=== PATIENT | male | born 1940 | race Caucasian/White ===

== ENCOUNTER 2020-08-09 10:40 | Inpatient (IN) | payer OTHER ==
[~2020-08-09] VITALS: Ht 177.8 cm; Wt 71.8 kg
[~2020-08-09 10:40] MED LIST: ACET325 PO; ALBU3IS INH; ALUMAGSIMA PO; AMIO200 PO; ASPI325EC PO; ASPI81CH PO; ASPI81EC PO; ATOR40TA PO; ATOR80 PO; CLOP75 PO; DIGO.125 PO; DIGO.25 PO; DILT120 PO; DOCU100 PO; FLORASTOR PO; FURO40 PO; FURO80 PO; HYDACE5 PO; IODINE; LEVFLO500 PO; LEVSOD75 PO; LISI5 PO; METO100ER PO; METO25ER PO; METO50 PO; METO50ER PO; METR500 PO; MIRT15 PO; MULVITA PO; MULVITMIND PO; NITR100CA PO; O2; OMEP20ER PO; POTCHL10ER PO; POTCHL20ER PO; RANI150 PO; SENN187 PO; SPIR25 PO; TORSE20 PO; WARF5 PO; WARF6 PO; [UNRECOGNIZED DRUG - OTHER]
[2020-08-09 11:19] LABS: BASOPHILS ABSOLUTE AUTO 0.04 K/mm3 (0.00-0.23); BASOPHILS PERCENT AUTO 0 % (0-2); EOSINOPHILS ABSOLUTE AUTO 0.06 K/mm3 (0.00-0.68); EOSINOPHILS PERCENT AUTO 1 % (0-6); Hemoglobin 12.2 g/dL (13.5-17.5); IMMATURE GRAN ABSOLUTE AUTO 0.07 K/mm3 (0.00-0.10); IMMATURE GRAN PERCENT AUTO 1 % (0-1); LYMPHOCYTES PERCENT AUTO 16 % (21-46); MONOCYTES ABSOLUTE AUTO 1.12 K/mm3 (0.16-1.47); MONOCYTES PERCENT AUTO 11 % (4-13); Mean Corpuscular HGB 29.2 pg (26.0-34.0); Mean Corpuscular HGB Conc 32.1 g/dL (31.5-36.5); Mean Corpuscular Volume 91 fL (80-100); Mean Platelet Volume 9.9 fL (9.1-12.4); NEUTROPHILS ABSOLUTE AUTO 7.23 K/mm3 (1.96-9.15); NEUTROPHILS PERCENT AUTO 71 % (41-73); Platelet Count 242 K/mm3 (150-400); RDW Coefficient Variation 13.5 % (11.7-14.2); RDW Standard Deviation 45.2 fL (35.1-46.3); Red Blood Cell Count 4.18 M/mm3 (4.30-5.90); White Blood Cell Count 10.12 K/mm3 (4.00-11.30)
[2020-08-09 11:36] LABS: International Normalized Ratio 1.87; Prothrombin Time Results 19.3 Sec (9.7-11.5)
[2020-08-09] MEDS ORDERED: LOSA25 PO (11:36)
[2020-08-09] MEDS ORDERED: WARF5 PO (11:37)
[2020-08-09] MEDS ORDERED: PANT20 PO (11:37)
[2020-08-09 11:39] LABS: Source, Urine Catheter
[2020-08-09 11:40] LABS: Albumin, Blood 2.7 g/dL (3.4-5.0); Albumin/Globulin Ratio 0.5 (0.8-1.8); Bilirubin, Total 0.9 mg/dL (0.1-1.0); Creatinine, Blood 1.26 mg/dL (0.60-1.20); Free Thyroxine 1.55 ng/dL (0.70-1.60); Globulin, Blood 5.1 g/dL (2.2-4.0); Magnesium, Blood 2.3 mg/dL (1.6-2.4); Potassium, Blood 3.9 mmol/L (3.5-5.5); Thyroid Stimulating Hormone 0.41 uIU/mL (0.360-4.800); Total Protein, Blood 7.8 g/dL (6.4-8.2); Troponin I 0.093 ng/mL (0.000-0.040)
[2020-08-09 11:50] LABS: Appearance, Urine Clear (Clear); Bilirubin, Urine Neg (Neg); Blood, Urine 5+ (Neg); Color, Urine Yellow (P-Yellow); Glucose Qualitative, Urine 1+ (Neg); Ketones, Urine 1+ (Neg); Leukocyte Esterase, Urine Neg (Neg); Nitrite, Urine Neg (Neg); Protein, Urine 3+ (Neg); Urobilinogen, Urine NORM (Normal)
[2020-08-09 12:01] LABS: Red Blood Cells, Urine 25-50 /hpf (0-2)
[2020-08-09 12:02] LABS: Bacteria Rare /hpf; Granular Casts 0-2 /lpf (0); Squamous Epithelial Cells Not Seen /hpf (Few)
--- NOTE | 2020-08-09 17:43 | NUR ---
RECEIEVED REPORT FROM LLILIAM MARCUS RN, AT 1428. PATIENT ARRIVED TO ROOM 305 AT 1445 AND WAS TRANSFERED TO HOSPITAL BED WITH THE ASSIST OF THREE STAFF MEMBERS. PATIENT ALERT AND ORIENTED WHEN HE ORIGINALLY ADMITTED TO THE FLOOR HOWEVER HAS SINCE BEEN NOTED TO HAVE CONFUSION. PATIENT DOES NOT RECALL WHERE HE IS AT AND INSISTS ON LAYING DOWN IN BED EVEN THOUGH HE IS ALREADY LAYING DOWN. SCD'S PLACED TO BLE. ADMISSION ASSESSMENT COMPLETED. H&P COMPLETED MOSTLY BY USE OF MEDICAL RECORDS. PATIENT ARRIVED TO THE UNIT VERY UNKEMPT AND DIRTY. PATIENT GIVEN A BEDBATH IMMEDIATELY. ULCERS OF SOME SORT TO BILATERAL INNER ANKLES; PICTURES IN CHART. 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 TELE PLACED ON PATIENT AND WAS RUNNING NSR WITH A 1ST DEGREE BLOCK AND PAC's HOWEVER HAD A 3 MINUTE RUN OF SVT AT APPROX 1740 PER HEATER TENDER. PATIENT STATES HE WAS ASYMMTOMATIC HOWEVER HE WAS NOTED TO BEING CONFUSED AT THE SAME TIME SO UNSURE OF THE RELIABILITY OF HIS STATEMENT. VITALS ARE STABLE. IV FLUIDS TO BE RUN PER EMAR PENDING NEW IV PLACEMENT; LIA ANNA RN IS ATTEMPTING TO PLACE ONE AT THIS TIME. PATIENT REMAINS IN ROOM RESTING. WILL CONTIUE TO MONITOR AND PROVIDE CARE NEEDED.
[2020-08-10 05:09] LABS: Hematocrit 32.9 % (37.0-53.0); Hemoglobin 10.6 g/dL (13.5-17.5); Mean Corpuscular HGB Conc 32.2 g/dL (31.5-36.5); Mean Corpuscular Volume 90 fL (80-100); Platelet Count 231 K/mm3 (150-400); RDW Coefficient Variation 13.7 % (11.7-14.2); RDW Standard Deviation 45.1 fL (35.1-46.3); Red Blood Cell Count 3.65 M/mm3 (4.30-5.90); White Blood Cell Count 8.88 K/mm3 (4.00-11.30)
[2020-08-10 05:27] LABS: Bun/Creatinine Ratio 23.6 (12.0-20.0); Calcium, Blood 8.3 mg/dL (8.5-10.1); Creatinine, Blood 1.23 mg/dL (0.60-1.20)
--- NOTE | 2020-08-10 06:15 | NUR ---
SHIFT SUMMARY- PT. PLEASANTLY CONFUSED LAST NIGHT. AWAKE T/O THE SHIFT. VOIDED IN URINAL, PVR BLADDER SCAN DONE PER ORDER WITH RESULT OF 64MLS. THIS NURSE WAS NOTIFIED BY TELE PT. HAD A 5 BEAT RUN OF SVT LAST NIGHT. PT. ASYMPTOMATIC. PER TEMPERING MACHINE OPERATOR UNABLE TO GET A GOOD CONNECTION IN PREVIOUS ROOM (#305). CHARGE NURSE MARIA DE JESUS COOK MADE AWARE. PT. TRANSFERRED TO ROOM 325. PT. LAST IN SR PER TELE. CALL LIGHT WITHN REACH, SIDE RAILS UPX2, AND BED ALARM ON FOR SAFETY. WILL CONT TO MONITOR.
--- NOTE | 2020-08-10 14:54 | NUR ---
PATIENT HAS BECOME INCREASINGLY CONFUSED AND FORGETFUL. HARD TO REDIRECT. SPOKE TO DR ROBERTSON AND LIA ANNA RN REGARDING PATIENT; PATIENT TO BE TRANSFERED TO THE SCU WHEN ROOM IS READY.
--- NOTE | 2020-08-10 15:41 | NUR ---
PATIENT CONTINUES TO HAVE PERIODS OF BOTH ORIENTATION AND CONFUSION. VITALS REMAIN STABLE. WOUNDS TO INNER ANKLES CLEANSED AND REDRESSED TODAY. MUCH SS DRAINAGE FROM R ANKLE WOUND. PATIENT DENIES PAIN TO WOUND SITES. IV FLUIDS STARTED ON PATIENT PER ORDERS. PATIENT HAS ATTEMPTED TO GET OUT OF BED UNASSISTED SEVERAL TIMES, CAN BE DIFFICULT TO REDIRECT. CAREGIVER IS AT BEDSIDE AT THIS TIME. WILL CONTINUE TO MONITOR AND PROVIDE CARE NEEDED.
--- NOTE | 2020-08-10 17:12 | NUR ---
Pt is resting in bed with his legs hanging off the edge of bed with his upper torso lying in the bed. Assisted Pt in repositioning in bed. Pt is A&OX2. Pt is stating he needs help to get to [facility]. Pt is unable to give appropriate place or reason for hospital stay. Notes suggest Pt also experiences moments of clarity and moments of agitation and confusion. Pt denies dyspnea at this time. Pt reports mild discomfort in his left leg. Spoke with Bedside RN Katie and discussed case. Spoke with Dr Butt and discussed case. Called and spoke with Pt's caregiver Rosalina. Rosalina reports Pt receives 5 hours a week of care and alternates with another caregiver Nereida. Rosalina reports before this hospital stay Pt did not experience any confusion. Rosalina expresses concerns regarding the possibility of Pt D/C back home with home health. She reports concerns regarding Pt's safety if he maintanes current confusion. Continued therapeutic listening and answered questions. Attempted to call Pt's brother Bill. Left voice message with request for a return phone call. Plan is to discuss with family the potential need of Pt needing a higher level of care if Pt's current mentation and intermittent confusion persists. Palliative Care will remain available.
--- NOTE | 2020-08-10 17:47 | NUR ---
TOOK OVER CARE OF THE PT, REPORT WAS TAKEN FROM WILLEM COOK, PT ORIENTED TO THE ROOM CALL SYSTEM, PT IS TRING TO SLIDE OUT OF THE BED UNASSISTED, WILL CONTINUE TO MONITOR AND ASSESS FOE CHANGES, BED ALARM ACTIVATED, CALL LIGHT IN REACH
--- NOTE | 2020-08-10 20:09 | NUR ---
ER NURSE Rica Barth gives order for soft vest & bilat wrist restraints. PT coming out of bed repeatedly repeatedly removes IV wraps & attempting to remove it. He was medicated on day shift with seroquel with no helpful effect.
--- NOTE | 2020-08-11 01:18 | NUR ---
pt repeatedly attempting to remove IV which is wrapped in coban. IV intact covered in stockinette & coban. IV infusing
--- NOTE | 2020-08-11 01:24 | NUR ---
PT was attempting repeatedly to remove IV device & climb out of bed unassisted. He does not redirect recently found down at home & he is 2 max for bed positioning & currently unable to ambulate. Vest restraint was applied to prevent further falls & bilat wrist restraints applied to prevent removal of medical eqipment. PT not swallowing HS meds held due to unable to swallow & decreased LOC. PT has NS infusing at 75 ml hour. Incontinent wearing attends continues in bilat wrist restraints & vest restraint. Continues 2 max for bed mobility & toileting. Withdrawn not taking oral .
[2020-08-11 06:03] LABS: Anion Gap 5 mmol/L (6-16); Blood Urea Nitrogen 20 mg/dL (8-24); Bun/Creatinine Ratio 19.6 (12.0-20.0); CO2, Blood 27 mmol/L (21-32); Chloride, Blood 111 mmol/L (98-108); Creatinine, Blood 1.02 mg/dL (0.60-1.20); Glomerular Filtration Rate >60 (60-); Glucose, Blood 85 mg/dL (70-99); Potassium, Blood 3.5 mmol/L (3.5-5.5); Sodium, Blood 143 mmol/L (136-145)
--- NOTE | 2020-08-11 17:34 | NUR ---
SPOKE TO PATIENT'S CG MARIA GUADALUPE MOYER BY PHONE. SHE DESCRIBED PT'S LIVING SITUATION; HE HAS NO PHONE, RADIO, OR TELEVISION AND SHE STATED HE CANNOT USE A PHONE. HE FALLS OFTEN. ONLY HAS 5 HOURS PER WEEK PAID CG HOURS AND IS ALONE THE REST OF THE TIME. IT WOULD BE UNSAFE FOR PATIENT TO RETURN TO HIS APARTMENT UNDER ANY CIRCUMSTANCES. HE WOULD LIKELY BENEFIT FROM AN ADULT FOSTER HOME.
--- NOTE | 2020-08-11 17:37 | NUR ---
SHIFT SUMMARY: NO ACUTE EVENTS. DENIED PAIN THIS SHIFT. GETTING UP TO CHAIR FOR MEALS. RESTRAINTS D/C'D AT 1005 THIS MORNING, NO AGGRESSIVE OR IMPULSIVE BEHAVIOR NOTED. HAD LARGE BM THIS MORNING. WORKED WITH PHYSICAL THERAPY TODAY, RECOMMENDED CONTACT GUARD ASSIST, AMBULATING WITH FWW. NO EVENTS ON TELEMETRY, PACED AT 70'S. WILL NEED PLACEMENT OR ADULT FOSTER CARE ON DISCHARGE.
--- NOTE | 2020-08-11 18:40 | NUR ---
Initial spiritual care note: Mr. Bennett was pleasant and appeared weak, but lucid. He was slow to engage. His only family is his brother, "who is in bad shape too." He feels cared for by good neighbors and friends. He denied concerns and declined prayer. I will remain available.
--- NOTE | 2020-08-12 19:38 | NUR ---
SHIFT SUMMARY: NO ACUTE EVENTS. A&O X 2, CALM AD COOPERATIVE, NO BEHAVIORAL PROBLEMS. GETTING UP TO CHAIR FOR MEALS, NEEDS 1 PERSON ASSIST. DRESSINGS ON RLE AND L ANKLE CHANGED PER ORDERS FROM DR. COLVIN. NO EVENTS ON TELEMETRY, PACED IN THE 60'S. USING URINAL, HAD BM TODAY. DENIED PAIN.
--- NOTE | 2020-08-13 04:22 | NUR ---
BULK FOLDER SUMMARY ALERT AND ORIENTED TO SELF AND PLACE. APPEARED TO SLEEP T/O THE NIGHT. UP TO BSC WITH FWW AND GB. DENIES PAIN. VSS. NO ACUTE CHANGES AT THIS TIME. BED IN LOWEST POSITION WITH CALL LIGHT IN REACH. WILL CONTINUE TO MONITOR AND REPORT TO ONCOMING RN.
--- NOTE | 2020-08-13 17:47 | NUR ---
SHIFT SUMMARY. PT IS ALERT, ORIENTATED TO SELF, FOLLOWS DIRECTIONS, PLEASANT AND COOPERATIVE WITH CARE. PT DENIES PAIN, SOB, N/V. WOUND CARE TO RLE COMPLETED WITH DR. COLVIN. PT PARTICIPATED WITH PHYSICAL THERAPY AND TOLERATED WELL. NO NEW CHANGES OR CONCERNS.
--- NOTE | 2020-08-13 19:31 | NUR ---
AWAKE IN BED. QUIET UNLESS SPOKEN TO. NO COMPLAINTS VOICED. NO NOTED S/S ACTE DISTRESS. CALL LIGHT IN REACH
--- NOTE | 2020-08-14 04:10 | NUR ---
SHIFT SUMMARY HAS BEEN RESTING QUIETLY WITH FEW INTERRUPTIONS THIS SHIFT. CALL LIGHT IN REACH
[2020-08-14 05:28] LABS: BASOPHILS ABSOLUTE AUTO 0.05 K/mm3 (0.00-0.23); BASOPHILS PERCENT AUTO 1 % (0-2); EOSINOPHILS ABSOLUTE AUTO 0.64 K/mm3 (0.00-0.68); EOSINOPHILS PERCENT AUTO 9 % (0-6); Hematocrit 33.5 % (37.0-53.0); Hemoglobin 10.7 g/dL (13.5-17.5); IMMATURE GRAN ABSOLUTE AUTO 0.04 K/mm3 (0.00-0.10); IMMATURE GRAN PERCENT AUTO 1 % (0-1); LYMPHOCYTES ABSOLUTE AUTO 3.05 K/mm3 (0.84-5.20); LYMPHOCYTES PERCENT AUTO 41 % (21-46); MONOCYTES PERCENT AUTO 8 % (4-13); Mean Corpuscular HGB 28.8 pg (26.0-34.0); Mean Corpuscular HGB Conc 31.9 g/dL (31.5-36.5); Mean Corpuscular Volume 90 fL (80-100); Mean Platelet Volume 9.8 fL (9.1-12.4); NEUTROPHILS ABSOLUTE AUTO 3.16 K/mm3 (1.96-9.15); NEUTROPHILS PERCENT AUTO 42 % (41-73); Platelet Count 268 K/mm3 (150-400); RDW Coefficient Variation 13.6 % (11.7-14.2); RDW Standard Deviation 44.7 fL (35.1-46.3); Red Blood Cell Count 3.71 M/mm3 (4.30-5.90); White Blood Cell Count 7.54 K/mm3 (4.00-11.30)
[2020-08-14 06:02] LABS: Anion Gap 2 mmol/L (6-16); Blood Urea Nitrogen 12 mg/dL (8-24); Bun/Creatinine Ratio 13.5 (12.0-20.0); CO2, Blood 30 mmol/L (21-32); Calcium, Blood 8.8 mg/dL (8.5-10.1); Chloride, Blood 109 mmol/L (98-108); Creatinine, Blood 0.89 mg/dL (0.60-1.20); Glomerular Filtration Rate >60 (60-); Glucose, Blood 86 mg/dL (70-99); Potassium, Blood 4.1 mmol/L (3.5-5.5); Sodium, Blood 141 mmol/L (136-145)
--- NOTE | 2020-08-14 17:01 | NUR ---
SHIFT SUMMARY PATIENT DENIES PAIN, NAUSEA, AND SHORTNESS OF BREATH. PATIENT UP STAND PIVOT TO CHAIR. USES URINAL INDEPENDENTLY. BROTHER AND CUSTOMER SUCCESS ASSOCIATE VISITED. ECHO COMLETED. WOUND CARE COMPLETED.
--- NOTE | 2020-08-14 17:09 | NUR ---
Echocardiogram completed.
--- NOTE | 2020-08-14 19:13 | NUR ---
RESTING QUIETLY, PREVIOUS NURSE VOICED PT HAD ECHO DONE AND FAMILY HAD VISITED. NO NOTED DISTRESS. CALL LIGHT IN REACH
--- NOTE | 2020-08-15 04:24 | NUR ---
SHIFT SUMMARY HAS BEEN RESTING QUIETLY WITH FEW INTERRUPIONS THIS SHIFT SINCE HS. CALL LIGHT IN REACH. NO NOTED ACUTE DISTRESS.
--- NOTE | 2020-08-15 17:26 | NUR ---
SHIFT SUMMARY PATIENT DENIES PAIN, NAUSEA, AND SHORTNESS OF BREATH. FORGETFUL AT TIMES. PATIENT DECLINED TO GET OUT OF BED TODAY. WOUND DRESSINGS C/D/I. USES URINAL INDEPENDENTLY. BEDBATH TODAY. NAPPING MOST OF SHIFT.
--- NOTE | 2020-08-15 21:05 | NUR ---
[place] FOR HS MEDS. QUIET UNLESS SPOKEN TO. AFFECT ATTENTIVE. CALL LIGHT IN REACH. DENIED PAIN. NOTED S/S DISTRESS. WILL CONTINUE TO MONITOR
--- NOTE | 2020-08-16 03:03 | NUR ---
SHIFT SUMMARY HAS BEEN RESTING QUIETLY WITH FEW INTERRUPTIONS. CALL LIGHT IN REACH. NO NOTED S/S ACUTE DISTRESS. WILL CONTINUE TO MONITOR
--- NOTE | 2020-08-16 19:03 | NUR ---
SHIFT SUMMARY: NO ACUTE CHANGES TO REPORT THIS SHIFT. PT A&O X3-4; CALM AND COOPERATIVE WITH CARE. NO C/O PAIN THIS SHIFT. BLE WOUNDS; DRESSING CHANGES THIS SHIFT. AWAITING PLACEMENT SNF). REPORT GIVEN TO ONCOMING RN.
--- NOTE | 2020-08-16 19:30 | NUR ---
ASSUMED CARE. JUST AOX2, DOES KNOW TOWN, NAME AND . DOES NOT KNOW HE IS IN THE HOSPTIAL OR DAY AND TIME. STATES MILD PAIN IN THE LEFT HIP TO KNEE AREA LATERAL SIDE. STATES JUST ABOVE A 0.5/10. DENIES N/T. BLE TRACE EDEMA. WEAK PULSES. DRESSINGS TO LEFT FOOT AND RIGHT LING CDI. LUNG SOUNDS CLEAR. HR IRREGULAR. ABD SOFT. BTX4. USES URINAL. DENIES ANY CONCERNS OR COMPLAINTS AT THIS TIME. WILL CONTINUE TO MONITOR. CALL LIGHT IN REACH, BED ALARM IS ON.
[2020-08-17 05:26] LABS: BASOPHILS ABSOLUTE AUTO 0.05 K/mm3 (0.00-0.23); BASOPHILS PERCENT AUTO 1 % (0-2); EOSINOPHILS ABSOLUTE AUTO 0.54 K/mm3 (0.00-0.68); EOSINOPHILS PERCENT AUTO 7 % (0-6); Hematocrit 34.4 % (37.0-53.0); Hemoglobin 11.1 g/dL (13.5-17.5); IMMATURE GRAN PERCENT AUTO 1 % (0-1); LYMPHOCYTES ABSOLUTE AUTO 3.43 K/mm3 (0.84-5.20); LYMPHOCYTES PERCENT AUTO 44 % (21-46); MONOCYTES ABSOLUTE AUTO 0.77 K/mm3 (0.16-1.47); MONOCYTES PERCENT AUTO 10 % (4-13); Mean Corpuscular HGB 29.6 pg (26.0-34.0); Mean Corpuscular HGB Conc 32.3 g/dL (31.5-36.5); Mean Corpuscular Volume 92 fL (80-100); Mean Platelet Volume 9.5 fL (9.1-12.4); NEUTROPHILS ABSOLUTE AUTO 2.94 K/mm3 (1.96-9.15); NEUTROPHILS PERCENT AUTO 38 % (41-73); Platelet Count 293 K/mm3 (150-400); RDW Coefficient Variation 14.8 % (11.7-14.2); RDW Standard Deviation 47.2 fL (35.1-46.3); Red Blood Cell Count 3.75 M/mm3 (4.30-5.90); White Blood Cell Count 7.83 K/mm3 (4.00-11.30)
--- NOTE | 2020-08-17 05:35 | NUR ---
SHIFT SUMMARY: JUST AOX2 THIS SHIFT, COOPERATIVE, FOLLOWS DIRECTION. REPORTS SCANT AMOUNT OF PAIN TO THE LEFT HIP DOWN TO KNEE, LATERAL SIDE. STATES NOT ENOUGH FOR PAIN MEDICATION. DRESSING TO RIGHT CALF AND LEFT FOOT WAS CHANGED ON DAY SHIFT, THEY ARE STILL CDI. SLEPT T/O THE NIGHT WITH NO ISSUES. USED URINAL PRN. HAD ISSUES SWALLOWING HIS MEDS LAST NIGHT, THEREFORE PLACED THEM IN APPLESAUCE THIS AM AND HE HAD NO PROBLEMS. VS WNL, AFEBRILE. NO ACUTE CHANGES TO REPORT. CALL LIGHT IN REACH, BED ALARM IS ON.
[2020-08-17 05:47] LABS: Anion Gap 6 mmol/L (6-16); Blood Urea Nitrogen 19 mg/dL (8-24); Bun/Creatinine Ratio 19.1 (12.0-20.0); CO2, Blood 27 mmol/L (21-32); Calcium, Blood 8.6 mg/dL (8.5-10.1); Chloride, Blood 107 mmol/L (98-108); Glomerular Filtration Rate >60 (60-); Glucose, Blood 83 mg/dL (70-99); Potassium, Blood 4.1 mmol/L (3.5-5.5); Sodium, Blood 140 mmol/L (136-145)
--- NOTE | 2020-08-17 19:04 | NUR ---
SHIFT SUMMARY: NO ACUTE CHANGES TO REPORT THIS SHIFT. PT A&O X3-4; [place]; CALM AND COOPERATIVE WITH CARE. NO C/O PAIN THIS SHIFT. PT & OT FOLLOWING. AWAITING PLACEMENT. REPORT GIVEN TO ONCOMING RN.
--- NOTE | 2020-08-17 19:10 | NUR ---
ASSUMED CARE. MARISOL REPORTS PAIN 1/10 IN THE LEFT HIP AND THIGH AREA. STATES IT ONLY HURT SLIGHTLY MORE WHEN WORKING WITH PT. HE DID REPORT THAT IS INGUINAL HERNIA ON THE RIGHT SIDE DID POP OUT TODAY BUT HE GOT IT BACK IN. DENIES ANY OTHER CHANGES. VS WNL. AFEBRILE. CALL LIGHT IS IN REACH. WILL CONTINUE TO MONITOR.
--- NOTE | 2020-08-18 05:27 | NUR ---
SHIFT SUMMARY: MARISOL HAD AN UNEVENTFUL NIGHT. WAS AWAKE FOR ONLY A SHORT PERIODS OF TIME TO TAKE MEDICATIONS THEN WENT TO SLEEP FOR THE NIGHT. DRESSINGS TO BLE HAVE REMAINED IN PLACE THEY WERE CHANGED ON DAY SHIFT. PAIN IS STILL VERY MINIMAL IN THE LEFT HIP, ABLE TO USE THE URINAL. VS WNL, AFEBRILE. NO ACUTE CHANGES TO NOTE THIS SHIFT. CALL LIGHT IS IN REACH, BED ALARM ON.
--- NOTE | 2020-08-18 16:54 | NUR ---
SUMMARY- PT ALERT TO SELF AND PLACE AND PRESIDENT- NOT AWARE OF THE DATE. SLEPT UNTIL LUNCH AND REMAINED IN BED NOLY AWAKENED FOR MEDS. AGREED TO GET UP FOR LUNCH INTO CHAIR. BACK TO BED ABOUT 1400- DRESSINGS ON LOWER EXT CHANGED PER ORDERS- WOUND HEALING WELL, R LEG WITH MOD SS DRAINAGE. DENIES ANY PAIN IN LEGS. TOLERATING FOOD AND FLUIDS. VOIDS IN URINAL.
--- NOTE | 2020-08-19 03:31 | NUR ---
LEATHER SHAVER SUMMARY Most of night, patient slept. No complaints of discomfort or pain. Lung sounds dim but clear. Heart sounds irregular. Bilat foot and ankle trace edema. Wound dressings on Right calf and left ankle dry and intact. Patient did get OOB once with two strong assists to use bedside commode. Result was a small/medium formed stool. Patient insisted on sitting on commode for at least 45 minutes to an hour, and was dissapointed he couldn't stay there longer. This RN was concerned for patients delicate skin and made him go back to bed. Nothing else of note overnight.
--- NOTE | 2020-08-19 17:14 | NUR ---
SHIFT SUMMARY PT A/O X2; ABLE TO CARRY ON A CONVERSATION BUT VERY [place]. HAD A BED BATH TODAY. DRESSING CHANGES TO BOTH LEG WOUNDS TODAY. DRESSINGS C/D/I. PT HAS BEEN RESTING IN BED COMFORTABLY FOR MOST OF THE DAY. PT HAS A HARD TIME FINDING FOODS TO CHOOSE FROM DUE TO DIETARY PREFERENCES. VSS; WCTM.
--- NOTE | 2020-08-20 02:36 | NUR ---
RN CORRECTIONS SUMMARY Von slept well overnight. Waking only once trying to get OOB to use the bedside commode. It took two staff to slow him down, get his FWW, gait belt and socks and a max pivot to get him onto the commode where he had a firm medium size very odorous stool. Wound dressings all dry and intact. Per day RN, waiting for eval by Surgeon, Dr. Smith tomorrow for new wound care orders. No complaints of pain or discomfort overnight
--- NOTE | 2020-08-20 16:32 | NUR ---
SHIFT SUMMARY PT IS A/O X3; PLEASANT AND COOPERATIVE WITH CARE. GOT UP TO THE CHAIR FOR LUNCH AND WORKED W/ P.T. AND O.T. DRESSING CHANGE TO THE R LEG AND TO THE THORACIC SPINE. WOUND DRESSINGS C.D.I. PT DENIES PAIN. VSS. WCTM.
--- NOTE | 2020-08-21 05:42 | NUR ---
SHIFT SUMMARY PATIENT ALERT AND ORIENTED. HAD NO COMPLAINTS OF CHEST PAIN OR SHORTNESS OF BREATH. DID NOT REQUIRE ANY PRN MEDICATIONS. PATIENT WAS ABLE TO SLEEP WELL OVERNIGHT. BED IN LOWEST POSITION WITH WHEELS LOCKED. CALL LIGHT WITHIN REACH. REPORT GIVEN TO ONCOMING RN.
--- NOTE | 2020-08-21 17:05 | NUR ---
NO CHANGES TODAY PT CONTINUES TO DO WELL. PT TRIES TO REFUSE CARE, BUT AIDES WERE ABLE TO DO BED BATH AND BED CHANGE. PT THEN WORKED ON AMBULATING IN ROOM WITH WALKER INDEPENDENTLY. PT DID WELL AND THEN BANDAGES ON R AND L LEGS HAVE BEEN CHANGED. PT TOLERATED WELL. PT RESTING IN BED AT THIS TIME WAITING FOR DINNER. CALL LIGHT IS WITHIN REACH AND BED ALARM IN PLACE WILL CONTINUE TO MONITOR.
[2020-08-22 05:11] LABS: BASOPHILS ABSOLUTE AUTO 0.06 K/mm3 (0.00-0.23); BASOPHILS PERCENT AUTO 1 % (0-2); EOSINOPHILS ABSOLUTE AUTO 0.57 K/mm3 (0.00-0.68); EOSINOPHILS PERCENT AUTO 8 % (0-6); Hematocrit 34.9 % (37.0-53.0); IMMATURE GRAN ABSOLUTE AUTO 0.03 K/mm3 (0.00-0.10); IMMATURE GRAN PERCENT AUTO 0 % (0-1); LYMPHOCYTES ABSOLUTE AUTO 3.14 K/mm3 (0.84-5.20); LYMPHOCYTES PERCENT AUTO 46 % (21-46); MONOCYTES ABSOLUTE AUTO 0.55 K/mm3 (0.16-1.47); MONOCYTES PERCENT AUTO 8 % (4-13); Mean Corpuscular HGB 29.7 pg (26.0-34.0); Mean Corpuscular HGB Conc 31.5 g/dL (31.5-36.5); Mean Corpuscular Volume 94 fL (80-100); Mean Platelet Volume 10.1 fL (9.1-12.4); NEUTROPHILS ABSOLUTE AUTO 2.41 K/mm3 (1.96-9.15); NEUTROPHILS PERCENT AUTO 36 % (41-73); Platelet Count 237 K/mm3 (150-400); RDW Coefficient Variation 16.3 % (11.7-14.2); RDW Standard Deviation 55.4 fL (35.1-46.3); White Blood Cell Count 6.76 K/mm3 (4.00-11.30)
[2020-08-22 05:36] LABS: Alanine Aminotransfer (ALT/SGP 17 U/L (12-78); Albumin, Blood 2.5 g/dL (3.4-5.0); Albumin/Globulin Ratio 0.6 (0.8-1.8); Alk Phos 72 U/L (50-136); Anion Gap 5 mmol/L (6-16); Aspartate Aminotrans (AST/SGOT 21 U/L (12-37); Bilirubin, Total 0.5 mg/dL (0.1-1.0); Blood Urea Nitrogen 18 mg/dL (8-24); Bun/Creatinine Ratio 21.1 (12.0-20.0); CO2, Blood 28 mmol/L (21-32); Calcium, Blood 8.7 mg/dL (8.5-10.1); Chloride, Blood 111 mmol/L (98-108); Creatinine, Blood 0.85 mg/dL (0.60-1.20); Globulin, Blood 4.3 g/dL (2.2-4.0); Glomerular Filtration Rate >60 (60-); Glucose, Blood 81 mg/dL (70-99); Potassium, Blood 3.8 mmol/L (3.5-5.5); Sodium, Blood 144 mmol/L (136-145); Total Protein, Blood 6.8 g/dL (6.4-8.2)
--- NOTE | 2020-08-22 06:05 | NUR ---
SHIFT SUMMARY PATIENT ALERT AND ORIENTED. HAD NO COMPLAINTS OF CHEST PAIN OR SHORTNESS OF BREATH. WAS ABLE TO SLEEP WELL OVERNIGHT AND HAD MINIMAL NEEDS. NO COMPLAINTS OF PAIN OR DISCOMFORT. BED IN LOWEST POSITION WITH WHEELS LOCKED AND ALARM ON. CALL LIGHT WITHIN REACH. REPORT GIVEN TO ONCOMING RN.
--- NOTE | 2020-08-22 17:14 | NUR ---
PT CONTINUES TO BE AOX3 WITH SOME CONFUSION. PT COOPERATIVE OF CARE AND CAN AMBULATED A STANDBY ASSIST. PT HAD BANDAGE CHANGED ON RL LEG AND WOUND WANTS TO BLEED. EXU DRI PAD PLACED AND REWRAPPED. DR COLVIN MAY NEED TO BE CALLED BACK IN IF PROBLEM PERSISTS, NIGHT NURSE WILL BE INFORMED. PT DENIES PAIIN AND HAS BEEN EATING WELL. WILL CONTINUE TO MONITOR.
--- NOTE | 2020-08-22 17:18 | NUR ---
REQUESTED RECORDS FOR PT PER DR SMITH'S ORDER.
[2020-08-23 05:29] LABS: Percent Saturation 28.3 % (20.0-50.0)
--- NOTE | 2020-08-23 05:44 | NUR ---
SHIFT SUMMARY PATIENT ALERT AND ORIENTED. HAD NO COMPLAINTS OF PAIN OR DISCOMFORT AND WAS ABLE TO SLEEP WELL OVERNIGHT. BED IN LOWEST POSITION WITH WHEELS LOCKED AND ALARM ON. CALL LIGHT WITHIN REACH. REPORT GIVEN TO ONCOMING RN.
--- NOTE | 2020-08-23 10:09 | NUR ---
THIS CONFERENCE CONCIERGE HAD ANOTHER RN WITH WOUND CARE EXPERIENCE LOOK AT PT'S WOUND ON R INNER LING. ALGINATE APPLIED PER DR COLVIN'S ORDERS AND THEN AN EXUDRI OVER THE TOP WITH GAUZE WRAP. PT TOLERATED WELL.
--- NOTE | 2020-08-23 16:43 | NUR ---
PT HAS HAD NO CHANGES CONTINUES TO BE COOPERATIVE OF CARE AOX3 WITH MILD CONFUSION. PT AMBULATED IN ROOM WITH WALKER AND HAS DONE WELL TODAY. PT SLEEPING IN BED ALL DAY. PT WILL REFUSE READJUSTMENTS AT TIMES. PT HAS BED ALARM IN PLACE WILL CONTINUE TO MONITOR.
--- NOTE | 2020-08-24 04:28 | NUR ---
SUMMARY: A/OX3 BUT CONFUSED TO DATE/TIME. HE DIDN'T MAKE ANY ATTEMPTS OOB BY SELF BUT BED ALARM ON FOR FALL RISK. PT USED URINAL INDEPENDENTLY IN BED AND WAS ASSISTED W/REPOSITIONING. DX'S TO L.FOOT AND R.CALF/ANKLE REMAIN C/D/I. PT HAD RECENT TOES AMPUTATED FROM L.FOOT. SEE PHOTOS FOR DETAILS OF SX SITE AND ULCERS. HE'S DENIED PAIN, NAUSEA AND ALL OTHER COMPLAINTS. VSS/AFEBRILE, NO ACUTE CHANGES. WCTM AND REPORT TO DAY RN.
--- NOTE | 2020-08-24 16:33 | NUR ---
Shift Summary A/Ox3, pleasant and cooperative. Worked with PT/OT today, tolerated well. 1P SBA c FWW and gait. Patient has discolored patches scattered throughout body having vitiligo-like appearance and rashes across lower abdomen. Dressings to L medial ankle and R lower leg completed per orders, tolerated well. Medicated for 2/10 R shoulder pain x 1 with good relief. Appetite is good. Up in chair for meals, calls appropriately for needs. No acute concerns, will continue to monitor.
--- NOTE | 2020-08-25 05:04 | NUR ---
SUMMARY: A/OX3 BUT MINIMALLY CONFUSED TO DATE/TIME. HE'S DENIED PAIN AND ALL OTHER COMPLAINTS AND HAS SLEPT MAJORITY OF NOCTE. PT USED URINAL INDEPENDENTLY AND WAS ASSISTED W/REPOSITIONING PRN. DX TO L.FOOT REMAINS C/D/I W/L.TOE AMPUTATIONS NOTED. DX TO R.ANTERIOR ANKLE/CALF HAS SMALL AMT OF HEMOSANGUINOUS DRAINAGE BUT WILL BE CHANGED THIS AM PER RX, WILL CHANGE TONIGHT IF BECOMES SATURATED. PT TOLERATES PILLS WHOLE IN APPLESAUCE. NO ACUTE CHANGES, VSS AND AFEBRILE. WCTM AND REPORT TO DAY RN.
--- NOTE | 2020-08-25 17:15 | NUR ---
Shift Summary/Hand off Patient transferred to room 362 and report given to receiving RN Tova. [place]/Ox3 to self, situation, and place, unknown date. Up in room to chair for meals, calls appropriately for needs. Denies any pain/discomfort and shortness of breath. Breathing even/unlabored, diminished L/S to left lower lobe, all others are clear. Appetite is good. No acute concerns. Dressing to RLE completed today. Transported to new room via w/c by [employer] SECRETARY along with personal belongings.
--- NOTE | 2020-08-25 18:22 | NUR ---
TRANSFER OF CARE: LATE ENTRY FOR 1715 PATIENT TRANSFERRED TO ROOM 362. PATIENT RESTING COMFORTABLY IN BED. PATIENT [place] AND ANSWERING QUESTIONS APPROPRIATELY. PATIENT DENIES PAIN OR DISCOMFORT. PATIEN BREATHING IS EVEN AND UNLABORED.
--- NOTE | 2020-08-25 22:40 | NUR ---
2000 PT RESTING COMFORTABLY IN BED; CHEERFUL; DENIES PAIN OR NAUSEA; ALERT AND ORIENTED X 3, ABLE TO FOLLOW SIMPLE VERBAL COMMANDS.
--- NOTE | 2020-08-26 03:19 | NUR ---
SHIFT SUMMARY: 79 Y/O MALE RESTED COMFORTABLY ALL SHIFT; DENIES PAIN OR NAUSEA; ALERT AND ORIENTED X 4; DRESSINGS TO BILATERAL LOWER EXTREMITIES DRY AND INTACT; BED ALARM APPLIED FOR SAFETY, BED LOW POSITION WITH CALL LIGHT AT SIDE.
--- NOTE | 2020-08-26 19:25 | NUR ---
SHIFT SUMMARY: NO ACUTE CHANGES TO REPORT THIS SHIFT. PT A&O; OCC CONFUSION; [place]; CALM AND COOPERATIVE WITH CARE. NO C/O PAIN THIS SHIFT. WOUND CARE TO BLE; DRESSINGS CHANGED THIS SHIFT. REPORT GIVEN TO ONCOMING RN.
--- NOTE | 2020-08-27 05:17 | NUR ---
SHIFT SUMMARY: 79 Y/O MALE RESTED COMFORTABLY ALL SHIFT; BLE DRESSINGS DRY AND INTACT; ALERT AND ORIENTED X 2, ABLE TO FOLLOW SIMPLE VERBAL COMMANDS; VOIDING VIA URINAL; DENIES PAIN OR NAUSEA; TAKES ALL MEDS IN APPLESAUCE; MED LOW POSITION WITH CALL LIGHT AT SIDE.
--- NOTE | 2020-08-27 19:22 | NUR ---
SHIFT SUMMARY: NO ACUTE EVENTS TO REPORT THIS SHIFT. PT A&O; [place]; CALM AND COOPERATIVE WITH CARE. ASPIRATION PRECAUTIONS. MEDICALLY STABLE; AWAITING PLACEMENT. REPORT GIVEN TO ONCOMING RN.
--- NOTE | 2020-08-28 04:39 | NUR ---
SHIFT SUMMARY: 79 Y/O MALE RESTED COMFORTABLY IN BED; DENIES PAIN OR NAUSEA; BILATERAL LOWER EXTREMITY DRESSINGS DRY AND INTACT; PT AWAITING PLACEMENT INTO LTC AT THIS TIME; BED LOW POSITION WITH CALL LIGHT AT SIDE.
[2020-08-28 05:14] LABS: Hematocrit 37.1 % (37.0-53.0); Hemoglobin 11.7 g/dL (13.5-17.5); Mean Corpuscular HGB 29.4 pg (26.0-34.0); Mean Corpuscular HGB Conc 31.5 g/dL (31.5-36.5); Mean Corpuscular Volume 93 fL (80-100); Mean Platelet Volume 10.7 fL (9.1-12.4); Platelet Count 206 K/mm3 (150-400); RDW Coefficient Variation 16.3 % (11.7-14.2); RDW Standard Deviation 55.3 fL (35.1-46.3); Red Blood Cell Count 3.98 M/mm3 (4.30-5.90); White Blood Cell Count 6.73 K/mm3 (4.00-11.30)
[2020-08-28 05:39] LABS: Albumin, Blood 2.7 g/dL (3.4-5.0); Anion Gap 5 mmol/L (6-16); Blood Urea Nitrogen 16 mg/dL (8-24); Bun/Creatinine Ratio 20.7 (12.0-20.0); CO2, Blood 29 mmol/L (21-32); Calcium, Blood 8.7 mg/dL (8.5-10.1); Chloride, Blood 111 mmol/L (98-108); Creatinine, Blood 0.77 mg/dL (0.60-1.20); Glomerular Filtration Rate >60 (60-); Glucose, Blood 84 mg/dL (70-99); Phosphorus, Blood 2.9 mg/dL (2.5-4.9); Sodium, Blood 145 mmol/L (136-145)
--- NOTE | 2020-08-28 17:35 | NUR ---
SHIFT SUMMARY NO ACUTE CHANGES T/O SHIFT, A&Ox3. PT DOES NOT CARE ABOUT DATE/TIME. VERY [place]. DRESSINGS WERE CHANGED OF BILATERAL WOUNDS ON LOWER EXTREMITIES PER PROVIDER ORDER. NEW PICTURES ALSO PLACED IN CHART. PT SLEEPS THROUGH MOST OF THE DAY AND DENIES A MAJORITY OF CARE SUCH BATHING OR GETTING OUT OF BED FOR MEALS. PT IS CURRENTLY SITTING UP IN BED EATING DINNER. CALL LIGHT WITHIN REACH.
--- NOTE | 2020-08-29 04:04 | NUR ---
SHIFT SUMMARY: 79 Y/O MALE RESTED COMFORTABLY IN BED; CHEERFUL; DENIES PAIN OR NAUSEA; BILATERAL LOWER EXTREMITIES DRESSINGS DRY AND INTACT; PT TENDS HAVE MINIMAL INTERACTION WITH STAFF AT NIGHT AND GENERALLY WILL ONLY RESPOND WITH YES/NO ANSWERS; VOIDING CLEAR YELLOW FLUID VIA URINAL; BED LOW POSITION WITH CALL LIGHT AT SIDE.
--- NOTE | 2020-08-29 16:31 | NUR ---
SHIFT SUMMARY NO ACUTE CHANGES T/O SHIFT. PT A&Ox3, PT STATES HE DOES NOT CARE WHAT DAY/TIME IT IS AND DOES NOT KNOW. RLE DRESSING CHANGED TODAY PER MD ORDERS. PT TOLERATED DRESSING CHANGE WELL AND STATED IT DID NOT HURT. PT IS STILL AWAITING PLACEMENT. PT STILL NOT WANTING TO PARTICIPATE IN CARE SUCH BATHING EVEN AFTER STRONG ENCOURAGMENT. WILL CONTINUE TO ENCOURAGE AND REPORT TO ONCOMING NURSE. PT IS CURRENTLY LAYING IN BED WITH CALL LIGHT WITHIN REACH.
--- NOTE | 2020-08-30 05:34 | NUR ---
SUMMARY: PT A/OX3 BUT ADMITS DISINTEREST IN REMEMBERING DATE/TIME. HE CALLS APPROPRIATELY TO SPECIFY NEEDS BUT DENIED PAIN AND ALL OTHER COMPLAINTS T/O NOCTE. PT IS 1P ASSIST W/FWW BUT HE SLEPT MAJORITY OF NOCTE AND WASN'T OOB TONIGHT. DX'S REMAIN C/D/I TO R.ANKLE AND L.ANTERIOR FOOT. PLACEMENT STILL PENDING. PT ENCOURAGED TO PARTICIPATE IN CARE AND ADL'S BUT HE LACKS MOTIVATION. NO ACUTE CHANGES, VSS/AFEBRILE. WCTM AND REPORT TO DAY RN.
--- NOTE | 2020-08-30 17:51 | NUR ---
SHIFT SUMMARY MARISOL DENIED PAIN THIS SHIFT. CLEANED AND REDRESSED FOOT WOUNDS. CAREGIVER VISITED. TOOK PILLS WHOLE WITH APPLESAUCE. SBA IN ROOM WITH WALKER. HAD BM. WCTM
--- NOTE | 2020-08-31 05:21 | NUR ---
SUMMARY: PT A/OX3 BUT DISINTERESTED IN DATE/TIME AND CALLS APPROPRIATELY FOR ASSIST. HE CONT'S FLAT AND WITHDRAWN, NEEDING ENCOURAGEMENT W/ADLS' AND TO PARTICIPATE IN CARE. HE'S DENIED PAIN AND ALL OTHER COMPLAINTS T/O NOCTE. DX'S TO BLE WOUNDS WERE CHANGED ON DAY SHIFT AND REMAIN C/D/I. PT TOLERATED PILLS WHOLE IN APPLESAUCE. HE USES URINAL INDEPENDENTLY. NO ACUTE CHANGES, VSS AND AFEBRILE. PLACEMENT PENDING. WCTM AND REPORT TO DAY RN.
--- NOTE | 2020-08-31 17:56 | NUR ---
Shift Summary A/Ox2 to self and situation, knows in hospital but doesn't know which one. PT/OT worked with patient today. Wound care completed to RLE, moderate hemosanguineous drainage noted. Uses urinal at the bedside independently. Denies pain, shortness of breath. Sits at the edge of the bed for most meals. No acute changes, awaiting placement.
--- NOTE | 2020-09-01 04:37 | NUR ---
SUMMARY NO ISSUES NOTED. PT REMAINS QUIET AND COOPERATIVE. PT HAS SLEPT T/O SHIFT. PT CURRENTLY SLEEPING AND BREATHING EASY. CALL LIGHT IN REACH.
--- NOTE | 2020-09-01 17:52 | NUR ---
NO ACUTE CHANGES. PLACEMENT ISSUES. PT IS ALERT AND COOPERATIVE WITH CARES. CALL LIGHT WITHIN REACH.
--- NOTE | 2020-09-02 04:09 | NUR ---
SHIFT SUMMARY NO ACUTE CHANGES T/O SHIFT, A&Ox3, CALM AND COOPERATIVE. BLE DRESSINGS WERE CHANGED THIS EVENING PER MD ORDERS. PT HAD A RATHER LARGE BM DURING THE SHIFT. PT IS SLEEPING WITH NO SIGNS OF DISTRESS. CALL LIGHT IS WITHIN REACH.
--- NOTE | 2020-09-02 17:15 | NUR ---
SHIFT SUMMARY PT A/O X3; PLEASANT/COOPERATIVE AND VERY [place]. PT HAS BEEN RESTING COMFORTABLY FOR THE MAJORITY OF THE SHIFT. 1 ASSIST WITH FWW TO THE BA. DRESSING CHANGE TO R LEG PER MD ORDERS. ONE SET OF VITALS DONE TODAY PER PHYSICIAN REQUEST. VSS; RESTING QUIETLY WITH CALL LIGHT IN REACH.
--- NOTE | 2020-09-03 04:24 | NUR ---
SHIFT SUMMARY NO ACUTE CHANGES T/O SHIFT, A&O TO SELF, PLACE, AND SITUATION. CALM AND COOPERATIVE T/O SHIFT. STILL AWAITING PLACEMENT. NO IV ACCESS. RLE WOUND DRESSING CHANGED BY DAY SHIFT RN. PT CURRENTLY SLEEPING WITH CALL LIGHT WITHIN REACH.
--- NOTE | 2020-09-03 17:09 | NUR ---
SHIFT SUMMARY PT A/O X2 AND PLEASANT. BED BATH GIVEN TODAY WELL DRESSING CHANGES TO BOTH LEGS. NO ACUTE CHANGES THIS SHIFT. VSS; PT RESTING QUIETLY IN BED.
--- NOTE | 2020-09-04 04:57 | NUR ---
SHIFT SUMMARY PATIENT HAD NO ACUTE CHANGES OBSERVED. AXOX 2-3 AND ONE ASSIST W/FWW [place] [facility] [place] TAKES MEDS WHOLE IN APPLE SAUCE. NO IV ACCESS. [place]. VSS/AFEBRILE. DENIES PAIN, SOB, AND N/V. COOPERATIVE WITH CARE. CALL LIGHT IN REACH. BED IN LOWEST POSITION. WILL CONTINUE TO MONITOR UNTIL DAY SHIFT NURSE ASSUMES CARE.
--- NOTE | 2020-09-04 18:00 | NUR ---
A&OX4, ONE ASSIST TRANSFER. PT DENIES N/V/PAIN. TAKES MEDS WHOLE WITH APPLESAUCE. RLE DRESSING CHANGE THIS AFTERNOON, WOUND MEASURING 6CM WIDE, 7CM LENGTH, WOUND BED WITH RED BEEFY GRANULATION WITH DARKENED EDGES, SURROUNDING SKIN INTACT. NO OTHER CHANGES OR CONCERNS.
--- NOTE | 2020-09-05 03:47 | NUR ---
SHIFT SUMMARY PATIENT HAD NO ACUTE CHANGES OBSERVED. AXOX 2-3 AND ONE ASSIST TO BSC W/FWW AND GAIT BELT. NO IV ACCESS. QUILEUTE. DENIES PAIN, SOB, AND N/V. VSS/AFEBRILE. COOPERATIVE WITH CARE. CALL LIGHT IN REACH. BED IN LOWEST POSITION. WILL CONTINUE TO MONITOR UNTIL DAY SHIFT NURSE ASSUMES CARE.
--- NOTE | 2020-09-05 18:15 | NUR ---
A&OX3, ONE ASSIST TRANSFER. PT DENIES N/V, PAIN. TAKES MEDS WHOLE WITH APPLESAUCE. BILATERAL DRESSING CHANGE THIS EVENING, RLE WOUND MEASURING 6CM WIDE, 7CM LENGTH. WOUND BED WITH RED BEEFY GRANULATION WITH DARK EDGES, SURROUNDING SKIN INTACT. LLE WOUND MEASURING 1.5CM WIDE, 3CM LENGTH. WOUND BED DRY WITH SMALL AMOUNT OF RED GRANULATION, SURROUNDING SKIN INTACT. NO OTHER CHANGES OR CONCERNS.
--- NOTE | 2020-09-06 03:43 | NUR ---
SHIFT SUMMARY PATIENT HAD NO ACUTE CHANGES OBSERVED. AXOX 3 AND HYDABURG. ONE ASSIST TO BSC WITH FWW/GAIT BELT. DENIES PAIN, SOB, AND N/V. TAKES MEDICATION WHOLE IN APPLE SAUCE. VSS/AFEBRILE. USES URINAL AT BEDSIDE. COOPERATIVE WITH CARE. CALL LIGHT IN REACH. BED IN LOWEST POSITION. WILL CONTINUE TO MONITOR UNTIL DAY SHIFT NURSE ASSUMES CARE.
--- NOTE | 2020-09-06 10:42 | NUR ---
PACEMAKER HE SAYS IT HAS A BATTERY AND HE HAS DECLINED A NEW ONE.
--- NOTE | 2020-09-06 11:02 | NUR ---
HE ATE BREAKFAST WELL AND HAS BEEN WATCHING TV. HE IS VOIDING WELL PER URINAL. HE DENIED ANY PAIN OR OTHER PROBLEMS. HIS L ANKLE FOAM DRESSING D&I. HIS RLL DRESSING ALSO D&I. WILL REDRESS IT TODAY ORDERED. WAITING PLACEMENT HE CANNOT CARE FOR HIMSELF AT HOME.
--- NOTE | 2020-09-06 18:42 | NUR ---
HE IS RESTING IN BED AFTER DINNER. HE EARLIER WALKED AROUND THE ROOM AND SAT UP FOR ATLEAST 4 HRS. WOUND CARE DONE ON R MEDIAL LING. EATS AND VOIDS WELL. NO BM TODAY. NO COMPLAINTS.
--- NOTE | 2020-09-07 04:28 | NUR ---
SHIFT SUMMARY ASSUMED CARE OF PT AT 1900. PT IS A/OX3, PT USED CALL LIGHT APPROPIATELY. PT WAS SBA TO BATHROOM AND HAD LARGE BM. PT TOOK PILLS WITH APPLESAUCE. PT USED URINAL T/O THE NIGHT. NO ACUTE EVENTS DURING THE NIGHT. PT HAS NO NEW COMPLAINTS. CALL LIGHT IN REACH, BED IN LOWEST POSTION, WILL CONTINUE TO MONITOR.
--- NOTE | 2020-09-07 17:07 | NUR ---
HE WAS UP FOR LUNCH AND PART OF THE SHIFT. HE WALKED AROUN THE ROOM AGAIN TODAY WITH SBA. NO CHANGES IN HIS CONDITION. WOUND CARE DONE ON BOTH WOUNDS THIS AFTERNOON ORDERED.
--- NOTE | 2020-09-07 17:09 | NUR ---
HE HAS THE SAME PROBLEM WITH HIS SWALLOWING AND SECRETIONS HE DID WHEN HE ARRIVED YESTERDAY. THAT BEING SAID, HE HAS SEEMED MORE COMFORTABLE SINCE SAW HIM ABOUT 4 HRS AGO AND TOLD HIM OF HIS PLAN TO SCOPE HIM TOMORROW. SECRETIONS ARE CLEAR OR WHITE. HE USES THE [place] WELL. HIS WAS HERE FOR ABOUT 9 HRS TODAY. SHE IS A COMFORT AND A HELP TO HIM. HE VOIDS WELL. HE JUST HAD A BM THIS EVENING. TELE NSR WITH ONE SVT EVENT. ASYMPTOMATIC. OXIMETRY OFF TODAY WHILE AWAKE. WE HAVE SPOT CHECKED HIM. HE DID NOT DESAT. HE IS UNABLE TO WEAR A CPAP AT THIS TIME BECAUSE OF HIS HICCOUGHS AND CONTINUAL NEED OF THE SUCTION FOR HIS SALIVA. IVF'S CONTINUE TO INFUSE. ALSO SAW HIM FIRST THING THIS MORNING. ECHO DONE. SHE WILL NOT FOLLOW AT THIS TIME. HE REMAINS NPO.
--- NOTE | 2020-09-08 04:49 | NUR ---
SHIFT SUMMARY PT HAS RESTED MOST OF THE NIGHT. HE HAS DENIED NEEDS, FORGETFUL TO PLACE, BUT KNEW PRESIDENT. ANSWERS MOST QUESTIONS APPROPRIATELY. BED ALARM IN PLACE FOR SAFETY, HE HAS NOT ATTEMPTED TO GET OOB WITHOUT ASSISTANCE. USES URINAL INDEPENDENTLY AT THE BEDSIDE. ASSESSMENT REMAINS UNCHANGED. BED IN LOWEST POSITON, CALL LIGHT WITHIN REACH.
--- NOTE | 2020-09-08 18:02 | NUR ---
END OF SHIFT SUMMARY: PATIENT DENIED PAIN OR DISCOMFORT THROUGHOUT THE SHIFT. PATIENT RESTED IN BED MOST OF THE DAY. PATIENT DECLINED GETTING UP TO THE CHAIR FOR MEALS. PATIENT SWALLOWING MEDS WHOLE WITH APPLESAUCE WITHOUT DIFFICULTY. DRESSING ON RIGHT INNER LING CHANGED TODAY PER ORDERS (BOTH WOUNDS CHANGED YESTERDAY). THERE IS GRANULATION TISSUE IN THE BED AND SOME SEROUS DRAINAGE WITH CHANGING THE DRESSING. THERE WAS A SMALL AMOUNT OF GREEN DISCHARGE ON THE DRESSING. NO FOUL ODOR NOTED. PATIENT DENIES PAIN WITH THE DRESSING CHANGE.
--- NOTE | 2020-09-08 19:15 | NUR ---
ASSUMED CARE RECEIVED REPORT FROM JOEY MOMIN. ASSUMED CARE OF PT. ASLEEP AT THIS TIME, NO S/S ACUTE DISTRESS NOTED, RESPS EVEN AND UNLABORED. DENIES NEEDS AT THIS TIME. CALL LIGHT, POSSESSIONS IN REACH, BED IN LOW POSITION WITH ALARMS ON. WCTM.
--- NOTE | 2020-09-09 07:35 | NUR ---
SHIFT SUMMARY PT REMAINS ASLEEP AT THIS TIME, NO ACUTE CHANGES IN CONDITION NOTED T/O NIGHT, WAS MONITORED EVERY 1-2 HOURS WITH NEEDS MET. NO C/O CP, PRESSURE, SOB. VS REVIEWED. PT DENIES NEEDS AT THIS TIME. CALL LIGHT, POSSESSIONS IN REACH, BED IN LOW POSITION WITH ALARMS ON. REPORT GIVEN TO JOEY NOVA
--- NOTE | 2020-09-09 18:51 | NUR ---
SHIFT SUMMARY: NO ACUTE EVENTS THIS SHIFT. DENIED PAIN. EATING WELL, NO NAUSEA. USING URINAL INDEPENDENTLY. NO COMPLAINTS. AWAITING PLACEMENT.
--- NOTE | 2020-09-09 19:15 | NUR ---
ASSUMED CARE RECEIVED REPORT FROM JOEY NOVA. ASSUMED CARE OF PT. RESTING COMFORTABLY AT THIS TIME, WANTS TO BE LEFT ALONE, NO S/S ACUTE DISTRESS NOTED. DENIES NEEDS. CALL LIGHT, POSSESSIONS IN REACH, BED IN LOW POSITION WITH ALARMS ON. WCTM
[2020-09-10 04:37] LABS: Hematocrit 37.5 % (37.0-53.0); Hemoglobin 11.9 g/dL (13.5-17.5); Mean Corpuscular HGB 30.2 pg (26.0-34.0); Mean Corpuscular HGB Conc 31.7 g/dL (31.5-36.5); Mean Corpuscular Volume 95 fL (80-100); Mean Platelet Volume 11.1 fL (9.1-12.4); Platelet Count 167 K/mm3 (150-400); RDW Coefficient Variation 16.5 % (11.7-14.2); RDW Standard Deviation 57.9 fL (35.1-46.3); Red Blood Cell Count 3.94 M/mm3 (4.30-5.90); White Blood Cell Count 6.98 K/mm3 (4.00-11.30)
[2020-09-10 05:07] LABS: Albumin, Blood 2.8 g/dL (3.4-5.0); Anion Gap 3 mmol/L (6-16); Blood Urea Nitrogen 12 mg/dL (8-24); Bun/Creatinine Ratio 15.7 (12.0-20.0); CO2, Blood 30 mmol/L (21-32); Calcium, Blood 8.9 mg/dL (8.5-10.1); Chloride, Blood 109 mmol/L (98-108); Creatinine, Blood 0.76 mg/dL (0.60-1.20); Glomerular Filtration Rate >60 (60-); Glucose, Blood 90 mg/dL (70-99); Phosphorus, Blood 3.6 mg/dL (2.5-4.9); Potassium, Blood 3.9 mmol/L (3.5-5.5); Sodium, Blood 142 mmol/L (136-145)
--- NOTE | 2020-09-10 07:00 | NUR ---
SHIFT SUMMARY PT ASLEEP T/O MUCH OF NIGHT, NO S/S ACUTE DISTRESS NOTED. WAS MONITORED EVERY 1-2 HOURS WITH NEEDS MET. VS REVIEWED. NO ACUTE CHANGES IN CONDITION NOTED. DRSGS CHANGED, C/D/I. DENIES NEEDS AT THIS TIME. CALL LIGHT, POSSESSIONS IN REACH BED IN LOW POSITON WITH ALARMS ON. REPORT GIVEN TO JOEY MULLEN.
--- NOTE | 2020-09-10 19:40 | NUR ---
SHIFT SUMMARY PT AXO, PLEASANT AND COOPERATIVE WITH CARE THOUGH EXTREMELY [id number]. NO ACUTE CHANGES THIS SHIFT. LOTION APPLIED TO DRY SKIN. MEDS WHOLE WITH APPLESAUCE. BED IN LOW POSITION, CALL LIGHT WITHIN REACH. BED ALARM ON.
--- NOTE | 2020-09-11 17:38 | NUR ---
SHIFT SUMMARY PT AOX3; UNFORGETFUL AT TIMES. PT CALLS APPROPRIATELY. WOUND ON BILAT LOWER EXTREMITIES. CHANGED THE DRESSING ON HIS RT LEG PER ORDER- DAILY CHANGE. STILL AWAITS PLACEMENT. NO OTHER ACUTE CHANGES ON THIS SHIFT. BED ALARM ON AND BED IS IN THE LOWEST POSITION AND CALL LIGHTS WITHIN REACH.
--- NOTE | 2020-09-12 07:20 | NUR ---
SHIFT SUMMARY: VSS. AFEB. AAOX2-3. FORGETFUL. QUIET. MAKES NEEDS KNOWN. DENIES PAIN. DRESSING CHANGED TO LLE. PT EYAD WELL. NO ERYTHEMA. MOD AMT OF SERO SANG DRAINAGE ON DRESSING. DRSG TO RLE CDI. PT REMAINED IN BED. NO ACUTE CHANGES OVERNIGHT. APPEARS TO HAVE SLEPT SELL.
--- NOTE | 2020-09-12 18:49 | NUR ---
FAWAD SUMMARY PT AOX3; FORGERTFUL AT TIMES; BUT WILL CALL APPROPRIATELY. DENIES PAIN; CHANGED DRESSING PER DR ORDERS, AWAITS PLACEMENT; BED ALARM ON AND CALL LIGHT WITHIN REACH.
--- NOTE | 2020-09-13 04:31 | NUR ---
SHIFT SUMMARY: AAOX2-3. QUIET AND WITHDRAWN. FLAT AFFECT REMAINS IN BED AND APPEARS TO HAVE SLEPT THROUGH MOST OF THE NIGHT. LSCTA. DRESSINGS TO BLE CDI. DENIES PAIN. NO ACUTE CHANGES.
--- NOTE | 2020-09-13 19:13 | NUR ---
NO ACUTE CHANGES THIS SHIFT. VSS, ON RA. FALL PRECAUTIONS IN PLACE. CALLS APPROPRIATELY FOR ASSISTANCE. UP WITH FWW AND SBA. WOUND CARE PER MD ORDERS. PATIENT CALM AND COOPERATIVE WITH CARE.
--- NOTE | 2020-09-13 19:20 | NUR ---
ASSUMED CARE RECEIVED REPORT FROM JOEY CHAVEZ. ASSUMED CARE OF PT. RESTING COMFORTABLY, NO S/S ACUTE DISTRESS NOTED. DENIES NEEDS AT THIS TIME. CALL LIGHT, POSSESSIONS IN REACH, BED IN LOW POSITION WITH ALARMS ON. TM.
--- NOTE | 2020-09-14 04:53 | NUR ---
SHIFT SUMMARY PT ASLEEP, NO S/S ACUTE DISTRESS NOTED. WAS MONITORED EVERY 1-2 HOURS WITH NEEDS MET. DRSG CHANGES TO BLE DONE, PT TOLERATED WELL. VS REVIEWED, NO ACUTE CHANGES NOTED, NO C/O CP/PRESSURE/SOB. PT DENIES NEEDS AT THIS TIME. CALL LIGHT, POSSESSIONS IN REACH, BED IN LOW POSITION WITH ALARMS ON. WCTM, REPORT OFF TO ONCOMING RN.
--- NOTE | 2020-09-14 17:49 | NUR ---
CHANGED RLE WOUND DRESSING AT 1345. RED GRANULATION WITH DARKEDNED EDGES. SURROUNDING SKIN INTACT.
--- NOTE | 2020-09-14 17:51 | NUR ---
SHIFT SUMMARY PT A&OX3, ONE ASSIST TRANSFER. PT DENIES N/V, PAIN, SOB. TAKES MEDS WHOLE WITH APPLESAUCE. RLE DRESSING CHANGED THIS AFTERNOON. DID NOT APPLY ALGINATE PER RN'S ASSESSMENT, USED NON ADHERENT PAD UNDER DRESSING. WOUND BED BEEFY RED GRANULATION, WITH DARKENED EDGES, SURROUNDING SKIN INTACT. NO OTHER CHANGES OR CONCERNS.
--- NOTE | 2020-09-15 05:08 | NUR ---
APPLICATION ENGINEER SUMMARY NO ACUTE CHANGES THIS SHIFT. PT AAOX4 AND PLEASANT. CALLS APPROPRIATELY WHEN NEEDED. PT DENIES PAIN, SOB, N/V. HAS BEEN RESTING THROUGH MOST OF THE NIGHT. DENIES NEEDS DURING ROUNDING. VSS, WILL CONTINUE TO MONITOR.
--- NOTE | 2020-09-15 15:20 | NUR ---
PT A&OX3, ONE ASSIST TRANSFER, ABLE TO MAKE NEEDS KNOWN. PT DENIES N/V, SOB, PAIN. TAKES MEDS WHOLE WITH APPLESAUCE. BLE DRESSINGS CHANGED TODAY. LLE WOUND BED DRY WITH SMALL AMOUNT OF RED GRANULATION, SURROUNDING SKIN INTACT. NO OTHER CHANGES OR CONCERNS.
--- NOTE | 2020-09-15 17:36 | NUR ---
DOCUMENTATION DONE BY SN TRISHA REVIEWED AND I AGREE WITH HER FINDINGS.
--- NOTE | 2020-09-16 05:00 | NUR ---
OBSERVATORY DIRECTOR SUMMARY NO ACUTE CHANGES. PT DENIES PAIN, SOB, N/V. USES URINAL INDEPENDENTLY. HAS SLEPT THROUGH MOST OF THE NIGHT. VSS, WILL CONTINUE TO MONITOR.
--- NOTE | 2020-09-16 19:47 | NUR ---
END OF SHIFT SUMMARY: PATIENT DENIED PAIN OR DISCOMFORT THROUGHOUT THE SHIFT. PATIENT TOLERATED DRESSING CHANGE WITHOUT DISCOMFORT. PATIENT UP AMBULATING IN THE ROOM WITH THE AVIATION SAFETY OFFICER. PATIENT UP TO THE BATHROOM FOR A BOWEL MOVEMENT. PATIENT UTILIZED CALL LIGHT APPROPRIATELY. PATIENT REPORTS THAT HE DOES NOT LIKE TO GET UP TO THE CHAIR FOR MEALS IT IS TOO UNCOMFORTABLE, BUT THAT HE IS WILLING TO WALK IN THE ROOM.
[2020-09-17 04:59] LABS: Hematocrit 37.8 % (37.0-53.0); Hemoglobin 12.1 g/dL (13.5-17.5); Mean Corpuscular HGB 30.5 pg (26.0-34.0); Mean Corpuscular Volume 95 fL (80-100); Mean Platelet Volume 11.3 fL (9.1-12.4); Platelet Count 161 K/mm3 (150-400); RDW Coefficient Variation 16.7 % (11.7-14.2); RDW Standard Deviation 58.8 fL (35.1-46.3); Red Blood Cell Count 3.97 M/mm3 (4.30-5.90); White Blood Cell Count 6.96 K/mm3 (4.00-11.30)
[2020-09-17 05:23] LABS: Anion Gap 3 mmol/L (6-16); Blood Urea Nitrogen 12 mg/dL (8-24); CO2, Blood 31 mmol/L (21-32); Calcium, Blood 8.9 mg/dL (8.5-10.1); Chloride, Blood 110 mmol/L (98-108); Creatinine, Blood 0.75 mg/dL (0.60-1.20); Glomerular Filtration Rate >60 (60-); Glucose, Blood 86 mg/dL (70-99); Potassium, Blood 4.2 mmol/L (3.5-5.5); Sodium, Blood 144 mmol/L (136-145)
--- NOTE | 2020-09-17 07:43 | NUR ---
09/17/20 0600 AWAKENED FOR AM MEDS. DENIES ANY DISCOMFORT OR OTHER S/S THIS SHIFT. VITALS STABLE. DECLINED MORE THAN FEW SIPS OF FLUID AT ONE TIME. SLEPT WELL.
--- NOTE | 2020-09-17 07:44 | NUR ---
pt stated he did not sleep well last night unsure the reason stated this room is quiet enough asked about his pas and the reason he has to wear them
--- NOTE | 2020-09-17 08:33 | NUR ---
MEDS GIVEN SCHED PT EATING BREAKFAST
--- NOTE | 2020-09-17 10:38 | NUR ---
pt resting offered pt a snack pt declined
--- NOTE | 2020-09-17 12:41 | NUR ---
pt eating lunch
--- NOTE | 2020-09-17 12:47 | NUR ---
dr dooley by to see pt
--- NOTE | 2020-09-17 13:12 | NUR ---
message left with ss re discharge plan
--- NOTE | 2020-09-17 17:45 | NUR ---
pt eating dinner req coffee decaf given earlier meds given with applesauce
--- NOTE | 2020-09-18 07:54 | NUR ---
SUMMARY PT APPEARED TO SLEEP TONIGHT.DAY RN AGREES TO FOLLOW UP ON BACK RASH/PLAQUES AND ON POSSIBLE PLACEMENT OPTIONS.
--- NOTE | 2020-09-18 16:56 | NUR ---
SHIFT SUMMARY PT IS STILL AWAITING PLACEMENT. PT HAS BEEN STABLE T/O THE DAY. 1 PERSON ASSIST WHEN OOB. PT TOLERATING PO, GOOD OUTPUT. DRESSINGS CHANGED. VSS. WILL MONITOR UNTIL REPORT TO ONCOMING RN.
--- NOTE | 2020-09-19 08:05 | NUR ---
SUMMARY PT SLEPT QUIETLY TONIGHT. WAITING POSSIBLE PLACEMENT.
[2020-09-19 13:50] LABS: Albumin, Blood 2.8 g/dL (3.4-5.0); Albumin/Globulin Ratio 0.8 (0.8-1.8); Bilirubin, Direct 0.1 mg/dL (0.0-0.3); Bilirubin, Indirect 0.3 mg/dL (0.1-0.7); Bilirubin, Total 0.4 mg/dL (0.1-1.0); Globulin, Blood 3.6 g/dL (2.2-4.0); Total Protein, Blood 6.4 g/dL (6.4-8.2)
--- NOTE | 2020-09-19 20:34 | NUR ---
SUMM- PT A/O X3, PLEASANT AND COOPERATIVE. RESTED IN BED TODAY AND SAT AT THE [facility] FOR ALL MEALS. FEEDS SELF. DENINS PAIN. LUNGS CLEAR WITH DIM BASES. TOLERATING FOOD AND FLUID. VSS, AFIBRILE. PLAN FOR PLACEMENT [facility]
--- NOTE | 2020-09-20 06:06 | NUR ---
SHIFT SUMMARY PT AA0X4. PT DENIES ANY NEEDS DURING SHIFT, RESTING IN BED USING URINAL INDEPENDENTLY. USES CALL LIGHT APPROPRIATLY. PLAN IS TO AWAIT PLACEMENT TODAY.
--- NOTE | 2020-09-20 18:01 | NUR ---
SHIFT SUMMARY PT A/O X4 AND HAS BEEN RESTING COMFORTABLY IN BED FOR THE MAJORITY OF THE SHIFTS. DENIES ANY DISCOMFORT OR ANY NEEDS. DRESSING CHANGES TO BOTH LEGS. AWAITING PLACEMENT. VSS; RESTING IN BED WITH CALL LIGHT IN REACH.
--- NOTE | 2020-09-20 20:23 | NUR ---
ASSUMED CARE. MARISOL IS TETLIN, QUITE, RELAXING IN HIS ROOM. LUNG SOUNDS ARE CLEAR, NO COUGH OR CONGESTION. HR REGULAR. DENIES ANY PAIN OR DISCOMFORT. USES URINAL. DRESSINGS TO BLE INTACT, CLEAN. ADMINISTER MEDS IN APPLESAUCE. DENIES ANY NEEDS AT THIS TIME. CALL LIGHT IN REACH.
--- NOTE | 2020-09-21 05:44 | NUR ---
SHIFT SUMMARY: MARISOL HAS BEEN VERY QUITE IN HIS ROOM. GETS TO BEDSIDE INDEPENDENT WHEN URINAL IS NEEDED. DENIES PAIN OR DISCOMFORT. VS WNL, AFEBRILE. DENIED NEEDS. MEDS GIVEN IN APPLESAUCE. SLEPT T/O SHIFT. NO ACUTE CHANGES THIS SHIFT. CALL LIGHT REMAINED IN REACH.
--- NOTE | 2020-09-21 18:24 | NUR ---
SHIFT SUMMARY PT DENIES PAIN, N/V, SOB. PT IS AWAITING PLACEMENT TO A FACILITY UPON DISCHARGE. PT WOUND CARE DONE ON RLE THIS SHIFT PER ORDERS. PT IS IN BED, CALL LIGHT IN REACH, BED IN LOW POSITION.
--- NOTE | 2020-09-21 19:30 | NUR ---
ASSUMED CARE. MARISOL IS RESTING IN BED, DENIES ANY ISSUES OR CONCERNS. LUNG SOUNDS ARE CLEAR. DRESSINGS TO LEGS ARE INTACT. EDEMA NOTED TO BLE. URINAL AT BEDSIDE. CALL LIGHT WITH IN REACH. WILL CONTINUE TO MONITOR.
--- NOTE | 2020-09-22 06:03 | NUR ---
SHIFT SUMMARY: MARISOL HAS HAD AN UNEVENTFUL NIGHT WITH NO ACUTE CHANGES OR CONCERNS. SLEPT WELL, INDEPENDENT WITH URINAL. TOOK MEDS IN APPLESAUCE. USES CALL LIGHT APPROPRIATLY.
--- NOTE | 2020-09-22 17:16 | NUR ---
SHIFT SUMMARY PT IS AO. PT DENIES PAIN, N/V, SOB. PT AMBULATES ONE PERSON ASSIST. PT WORKED WITH PT/OT AND DID WELL. PT CURRENTLY AWAITING PLACEMENT UPON DISCHARGE. PT'S CAREGIVER IN TODAY TO VISIT. THIS RN PERFORMED WOUND CARE PER INTERVENTIONS AND UPDATED WOUND PHOTOS IN PT CHART. PT IS PLEASANT AND HAS A GOOD APPETITE. PT IS IN BED, CALL LIGHT IN REACH, BED IN LOW POSITION.
--- NOTE | 2020-09-22 19:22 | NUR ---
ASSUMED CARE. MARISOL IS RELAXING IN BED STATES NOTHING HAS CHANGED. HE DID GET UP AND WORK WIHT PT TODAY AND ALSO HAD HIS DRESSINGS CHANGED. HE IS DOING HIS NORMAL CHILLING IN THE ROOM, LAYING IN BED, SLEEPING MOST OF THE TIME. CALL LIGHT IS IN REACH.
--- NOTE | 2020-09-23 05:56 | NUR ---
SHIFT SUMMARY: MARISOL HAS HAD AN UNEVENTFUL NIGHT, WITH NO CHANGES OR CONCERNS TO NOTE. VS WNL. REMAINS QUITE IN HIS ROOM, SLEPT ALL NIGHT. TAKES MEDS PRESCRIBED. PLAN: MONITOR AND ASSESS. CASE MANAGEMENT IS WORKING ON PLACEMENT.
--- NOTE | 2020-09-23 17:15 | NUR ---
NO ACUTE CHANGES TO THE PATIENT. HE IS ALERT AND ORIENTED AND ABLE TO EXPRESS ANY NEEDS. DRESSING TO RIGHT LING WAS CHANGED THIS SHIFT, PATIENT TOLERATED WELL. CALL LIGHT WITHIN REACH.
--- NOTE | 2020-09-24 05:49 | NUR ---
SHIFT SUMMARY LYING IN SUPINE WITH EYES CLOSED. AAO X4, WALKER, FOLLOWES ALL COMMANDS, [place]. HAS RESTED WELL THIS SHIFT. NO SIGNIFICAT CHANGES THIS SHIFT. CONTINUES TO BE CONTIENT OF BOWEL AND BLADDER, USES URINAL. WOUND DRESSINGS ARE C/D/I. DENIES FURTHER NEEDS OR WANTS AT THIS TIME. SAFETY MEASURES IN PLACE. WILL CONTINUE TO MONITOR AND GIVE HAND OFF TO ONCOMING SHIFT USING SBAR.
--- NOTE | 2020-09-24 17:50 | NUR ---
NO ACUTE CHANGES. PT HAD DRESSINGS TO BOTH WOUNDS ( RIGHT LING AND LEFT FOOT ) CHANGED THIS SHIFT. TOLERATED WELL. PT HAS BEEN ASKED AND ENCOURAGED TO TAKE A BATH OR SHOWER AND HE KEEPS REFUSING. PT IS ALERT AND ORIENTED AND ABLE TO EXPRESS HIS NEEDS. CALL LIGHT WITHIN REACH. SLEPT MOST OF THE DAY . NO COMPLAINTS. CALL LIGHT WITHIN REACH.
--- NOTE | 2020-09-25 05:09 | NUR ---
SHIFT SUMMARY NO ACUTE CHANGES THIS SHIFT. PT SLEPT WELL T/O NIGHT WITH NO COMPLAINTS OF ANY KIND. IND-SBA WITH FWW. PT IS LAYING IN BED WITH EYES CLOSED, EVEN AND UNLABORED RESPIRATIONS. BED IN LOWERED POSITION WITH SIDE RAILS UP X2 FOR SAFETY. CALL LIGHT AND PERSONAL ITEMS WITH IN REACH. NO APPARENT NEEDS OR DISTRESS AT THIS TIME, WILL CONTINUE TO MONITOR UNTIL REPORT GIVEN TO DAY RN.
--- NOTE | 2020-09-25 16:47 | NUR ---
SHIFT SUMMARY PT A/O X4 AND VERY HYDABURG. NO ACUTE CHANGES THIS SHIFT. PT HAS BEEN RESTING IN BED COMFORTABLY FOR THE MAJORITY OF THE SHIFT. WOUND DRESSING TO R CALF. VISITATION[facility]ASS[facility]MENT FROM [facility]. VSS; PT CURRENTLY RESTING COMFORTABLY IN BED WITH HIS CALL LIGHT IN REACH.
--- NOTE | 2020-09-26 05:20 | NUR ---
SHIFT SUMMARY NO ACUTE CHANGES THIS SHIFT. PT SLEPT WELL T/O NIGHT WITH NO COMPLAINTS OF ANY KIND. PT AMBULATES WELL WITH WALKER. CALLS APPROPRIATELY. PT IS LAYING IN BED WITH EYES CLOSED, EVEN AND UNLABORED RESPIRATIONS. BED IN LOWERED POSITION WITH SIDE RAILS UP X2 FOR SAFETY. CALL LIGHT AND PERSONAL ITEMS WITH IN REACH. NO APPARENT NEEDS OR DISTRESS AT THIS TIME, WILL CONTINUE TO MONITOR UNTIL REPORT GIVEN TO DAY RN.
--- NOTE | 2020-09-26 16:42 | NUR ---
SHIFT SUMMARY PT A/O X4. NO ACUTE CHANGES THIS SHIFT. PT HAS BEEN RESTING COMFORTABLY FOR THE MAJORITY OF THE SHIFT. DRESSING CHANGES TO BOTH LEG WOUNDS PER EMR ORDERS. VSS; PT RESTING IN BED WITH HIS CALL LIGHT IN REACH.
--- NOTE | 2020-09-27 04:53 | NUR ---
SHIFT SUMMARY NO ACUTE CHANGES THIS SHIFT. PT SLEPT WELL T/O NIGHT WITH NO COMPLAINTS OF ANY KIND. A&O X3, CALLS APPROPRIATELY. PT IS LAYING IN BED WITH EYES CLOSED, EVEN AND UNLABORED RESPIRATIONS. BED IN LOWERED POSITION WITH SIDE RAILS UP X2. CALL LIGHT AND PERSONAL ITEMS WITH IN REACH. NO APPARENT NEEDS OR DISTRESS AT THIS TIME, WILL CONTINUE TO MONITOR UNTIL REPORT GIVEN TO DAY RN.
--- NOTE | 2020-09-27 17:18 | NUR ---
SHIFT SUMMARY PT RESTING IN BED, MED COMPLIANT, CALM AND COOPERATIVE. PT WAITING FOR PLACEMENT AT THIS TIME AND MAKES NO COMPLAINT OF SOB OR PAIN. STAFF WILL CONT. TO MONITOR FOR CHANGES.
[2020-09-27 18:57] LABS: Source, Urine Voided
[2020-09-27 19:00] LABS: Bilirubin, Urine Neg (Neg); Blood, Urine Neg (Neg); Glucose Qualitative, Urine Neg (Neg); Ketones, Urine Neg (Neg); Leukocyte Esterase, Urine Neg (Neg); Nitrite, Urine Neg (Neg); Protein, Urine Neg (Neg); Specific Gravity, Urine 1.015 (1.003-1.022); Urobilinogen, Urine NORM (Normal); pH, Urine 6.5 (5.0-8.0)
[2020-09-27 19:20] LABS: Appearance, Urine Clear (Clear); Color, Urine Yellow (P-Yellow)
--- NOTE | 2020-09-28 18:31 | NUR ---
SHIFT SUMMARY: NO EVENTS THIS SHIFT. DENIED PAIN. GOOD APPETITE. DRESSINGS ON BLE CHANGED PER ORDERS. RESTED IN BED MOST OF THE DAY.
--- NOTE | 2020-09-29 17:42 | NUR ---
SHIFT SUMMARY: NO ACUTE EVENTS, NO COMPLAINTS. PT HAD VISITOR THIS EVENING. RLE DRESSING CHANGED PER ORDERS.
--- NOTE | 2020-09-30 06:15 | NUR ---
PT CONTINUES COOPERATIVE & INDEP IN ROOM. hE IS QUIET & COOPERATIVE. hE HAS NO COMPLAINTS. [facility] BUT ABLE TO COMMUNICATE .
--- NOTE | 2020-09-30 17:23 | NUR ---
SHIFT SUMMARY PT ALERT ORIENTED, VERY [place]. PT CALLS APPROPRIATELY. DRESSING CHANGED TODAY BLE PER DR ORDER. NO OTHER ACUTE CHANGES AT THIS SHIFT. STILL AWAITS FOR PLACEMENT. BED IS IN THE LOWEST POSITION, BED ALARM IS ON AND CALL LIGHTS WITHIN REACH .
--- NOTE | 2020-10-01 00:24 | NUR ---
09/30/201999 PT RESTING COMFORTABLY IN BED; TOOK ALL H.S. MEDS VIA APPLESAUCE WITHOUT ISSUE; BLE DRESSINGS DRY AND INTACT.
--- NOTE | 2020-10-01 03:41 | NUR ---
SHIFT SUMMARY: 79 Y/O MALE RESTED COMFORTABLY IN BED; CHEERFUL; ALERT AND ORIENTED X 3, ABLE TO FOLLOW SIMPLE VERBAL COMMANDS; DENIES PAIN OR NAUSEA; PT STILL AWAITING PLACEMENT TO [facility] FACILITY; BED LOW POSITION WITH CALL LIGHT AT SIDE.
--- NOTE | 2020-10-01 11:55 | NUR ---
A+O, QUILEUTE, TOOK MEDICATION WITH , no medical issues noted, pain denied, ls clear, call light in reach, bed in low position, will continue to monitor and treat as appropriate
--- NOTE | 2020-10-01 17:38 | NUR ---
standing weight was 158.2LBS converted weight in kilograms was 71.8
--- NOTE | 2020-10-01 18:02 | NUR ---
CN NOTED THAT PT SHOULD BE WEIGHED TO SEE IF HE HAD LOST WEIGHT IN THE 50+ DAYS HE HAD BEEN HERE, ADMIT WEIGHT 76KG CURRENT WEIGHT 71KG STANDING WEIGHT, A+O, NO IV, RM AIR UP ADLIB, VERY [place], WAITING ON PLACEMENT, CALL LIGHT IN PLACE, PT STATES HE ENJOYS THE MEALS ATE > 80% OF ALL MEALS THIS SHIFT, NOT VERY ACTIVE
--- NOTE | 2020-10-01 21:09 | NUR ---
ASSUMED CARE. MARISOL IS DOING HIS NORM OF LAYING IN BED, SLEEPING THE DAY AWAY. DENYING ANYTHING WRONG OR NEEDING ANYTHING. OVERALL HIS ASSESSMENT IS BENIGN EXCEPT TWO WOUNDS ON BLE. LEFT FOOT DRESSING REMOVED, THERE IS A SMALL SLIVER OF AN AREA THAT IS SHALLOW OPENING OF PINK TISSUES WITH EPITHIAL TISSUES STARTED TO CLOSE OVER IT, DRAINAGE IS VERY SCANT. NO S/SX OF INFECTION. CLEANSED AND APPLIED MEPILEX. RIGHT ANKLE DRESSING SLIDING UP AND OFF WOUND. REMOVED GAUZE WRAP THERE IS MODERATE AMOUNT OF SEROUS SANGUAOUS DRAINAGE, NO S/SX OF INFECTION. WOUND IS HYPERGRANULATED WITH GOOD PINK EDGES. SURROUNDING TISSUES HAS SOME BRUISING TO IT. CLEANSED AND APPLIED CALCIUM ALGINATE. DRESSING NEEDS TO BE CHANGED MORE OFTEN TO BACK OFF THE MOISTURE SO IT CAN HEAL. COVERED WITH SMALL ABD, GAUZE, TAPED TO SECURE. MEDS GIVEN IN APPLESAUCE. CALL LIGHT IS IN REACH, BED ALARM IS ON.
--- NOTE | 2020-10-02 05:52 | NUR ---
SHIFT SUMMARY: MARISOL HAS NO ACUTE CHANGES TO NOTE. DRESSING WERE CHANGED LAST NIGHT. WOUND ON LEFT FOOT IS ALMOST HEALED. WOUND ON THE RIGHT ANKLE IS HYPERGRANULATED AND NEEDS TO BE CHANGED DAILY LIKE ORDERS STATE TO BACK DOWN THE GRANULATION. OTHER THEN THAT VITALS WERE GOOD. SLEPT THROUGHOUT THE NIGHT. PLAN: MONITOR AND ASSESS, WAITING PLACEMENT.
--- NOTE | 2020-10-02 15:28 | NUR ---
no acute changes during shift, dressing changed but no alginate placed on wound bed, hospitalist called but recommended surgon since they had written the original order, Dr wilson not available at this time will try again to have dressing orders updated, wound healing well, braulioary up to try to help pt increase wt, pt states that he is very selective in what he eats, layla and him did come up with some suggestions but the pt was concerned about the amount of extra work that they would cause, diatary assured him that he was worth the effort, call light within reach where pt wants it (not on the bed), bed in low position, no IV, rm air, a+o but lime
--- NOTE | 2020-10-02 18:08 | NUR ---
a+o, dressings cdi, call light in reach, no IV, rm air, ate 100% of dinner and lunch, said he enjoyed what nagélica had sent up, bed in low position, resting quietly cooperative with care
--- NOTE | 2020-10-03 06:30 | NUR ---
SHIFT SUMMARY PATIENT ALERT AND ORIENTED. HAD NO COMPLAINTS OF PAIN. WAS ABLE TO SLEEP WELL OVERNIGHT. BED IN LOWEST POSITION WITH WHEELS LOCKED. CALL LIGHT WITHIN REACH. REPORT GIVEN TO ONCOMING RN.
[2020-10-03 16:07] LABS: Percent Saturation 26.4 % (20.0-50.0)
--- NOTE | 2020-10-03 19:36 | NUR ---
a+o, dressings changed, 100% of lunch and dinner eaten, call light in reach, rm air, no IV, bsr shared with pt and noc nurse
--- NOTE | 2020-10-04 04:39 | NUR ---
SHIFT SUMMARY A/O, ABLE TO MAKE NEEDS KNOWN. VERY LUMBEE. COOPERATIVE WITH CARE. NO C/O PAIN/DISCOMFORT. APPEARED TO REST MUCH OF SHIFT. VSS/AFEBRILE. AWAITING PLACEMENT. NO ACUTE CHANGES NOTED AT THIS TIME. BED REMAINS IN LOWEST POSITION; ALARM ON. CALL LIGHT AND BELONGINGS WITHIN REACH. REPORT TO ONCOMING RN.
[2020-10-04 05:05] LABS: BASOPHILS ABSOLUTE AUTO 0.04 K/mm3 (0.00-0.23); BASOPHILS PERCENT AUTO 1 % (0-2); EOSINOPHILS ABSOLUTE AUTO 0.61 K/mm3 (0.00-0.68); EOSINOPHILS PERCENT AUTO 10 % (0-6); Hematocrit 37.3 % (37.0-53.0); IMMATURE GRAN ABSOLUTE AUTO 0.01 K/mm3 (0.00-0.10); IMMATURE GRAN PERCENT AUTO 0 % (0-1); LYMPHOCYTES ABSOLUTE AUTO 3.04 K/mm3 (0.84-5.20); LYMPHOCYTES PERCENT AUTO 51 % (21-46); MONOCYTES ABSOLUTE AUTO 0.57 K/mm3 (0.16-1.47); MONOCYTES PERCENT AUTO 10 % (4-13); Mean Corpuscular HGB 30.4 pg (26.0-34.0); Mean Corpuscular HGB Conc 32.2 g/dL (31.5-36.5); Mean Corpuscular Volume 94 fL (80-100); Mean Platelet Volume 11.7 fL (9.1-12.4); NEUTROPHILS ABSOLUTE AUTO 1.68 K/mm3 (1.96-9.15); NEUTROPHILS PERCENT AUTO 28 % (41-73); Platelet Count 147 K/mm3 (150-400); RDW Coefficient Variation 15.9 % (11.7-14.2); RDW Standard Deviation 55.9 fL (35.1-46.3); Red Blood Cell Count 3.95 M/mm3 (4.30-5.90); White Blood Cell Count 5.95 K/mm3 (4.00-11.30)
[2020-10-04 05:25] LABS: Anion Gap 3 mmol/L (6-16); Blood Urea Nitrogen 19 mg/dL (8-24); Bun/Creatinine Ratio 26.6 (12.0-20.0); CO2, Blood 29 mmol/L (21-32); Calcium, Blood 8.4 mg/dL (8.5-10.1); Chloride, Blood 112 mmol/L (98-108); Creatinine, Blood 0.72 mg/dL (0.60-1.20); Glomerular Filtration Rate >60 (60-); Glucose, Blood 91 mg/dL (70-99); Sodium, Blood 144 mmol/L (136-145)
[2020-10-04 10:23] LABS: Influenza A, PCR Negative (NEGATIVE); Influenza B, PCR Negative (NEGATIVE); Resp Syncytial Virus, PCR Negative (NEGATIVE); SARS-Cov-2 (COVID-19) PCR, MMC Negative (NEGATIVE)
--- NOTE | 2020-10-04 14:00 | NUR ---
DRESSINGS CHANGED TO BL LE WOUNDS AND PHOTOS TAKEN. REPORT CALLED TO [facility] AT [facility]. PT ASSISTED TO W/C FOR TRANSPORTATION TO FACILITY. TO [facility] VIA W/C.
== END 2020-10-04 13:41 | disposition short-term general hospital (02) | DRG 592 ==
LOC: ER 10:40 → MEDS 10:41
PROVIDERS: Emergency Medicine; Family Medicine; Internal Medicine; Nurse Practitioner Acute Care; ADMIT Internal Medicine
PROC: 0HDLXZZ Extraction of Left Lower Leg Skin, External Approach (ICD-10-PCS; principal; 2020-08-09)
PROC: 0HDKXZZ Extraction of Right Lower Leg Skin, External Approach (ICD-10-PCS; 2020-08-09)
DX: L97.811 Non-pressure chronic ulcer of other part of right lower leg limited to breakdown of skin (principal); I21.A1 Myocardial infarction type 2; M62.82 Rhabdomyolysis; I48.20 Chronic atrial fibrillation, unspecified; I50.42 Chronic combined systolic (congestive) and diastolic (congestive) heart failure; N17.9 Acute kidney failure, unspecified; I42.0 Dilated cardiomyopathy; L97.821 Non-pressure chronic ulcer of other part of left lower leg limited to breakdown of skin; B87.9 Myiasis, unspecified; Z95.0 Presence of cardiac pacemaker; Z79.01 Long term (current) use of anticoagulants; E86.0 Dehydration; E78.5 Hyperlipidemia, unspecified; Z51.5 Encounter for palliative care; I34.0 Nonrheumatic mitral (valve) insufficiency; Z87.891 Personal history of nicotine dependence; Z66 Do not resuscitate; I51.3 Intracardiac thrombosis, not elsewhere classified; H91.90 Unspecified hearing loss, unspecified ear; D63.8 Anemia in other chronic diseases classified elsewhere; R29.6 Repeated falls; R40.0 Somnolence; N18.30 Chronic kidney disease, stage 3 unspecified; R62.7 Adult failure to thrive; Z68.24 Body mass index [BMI] 24.0-24.9, adult
CPT/HCPCS: 0241U; 36415; 51701; 70450; 71045; 80048; 80053; 80069; 80076; 81001; 81003; 82550; 82607; 82728; 82746; 83540; 83550; 83735; 84100; 84439; 84443; 84484; 85025; 85027; 85610; 93005; 93010; 93306; 93925; 93970; 97110; 97112; 97116; 97129; 97162; 97166; 97530; 97535; 99285-25; A9270; A9270-GY; C9113; G0378; J7030

== ENCOUNTER → 2021-05-17 | Outpatient (CLI) | payer OTHER ==
[~2021-05-17] MED LIST changes: +LOSA25 PO; +PANT20 PO
[2021-05-17 16:00] LABS: Creatinine, Blood 1.06 mg/dL (0.60-1.20); Glomerular Filtration Rate >60 (60-)
== END | disposition home or self-care (01) ==
LOC: LAB SHORT 13:24
PROVIDERS: Physician Assistant
DX: R63.4 Abnormal weight loss (principal)
CPT/HCPCS: 82565

== ENCOUNTER → 2021-09-20 | Outpatient (CLI) | payer OTHER ==
[2021-09-20 17:04] LABS: Albumin, Blood 3.5 g/dL (3.4-5.0); Albumin/Globulin Ratio 0.9 (0.8-1.8); Bilirubin, Total 0.6 mg/dL (0.1-1.0); Bun/Creatinine Ratio 23.6 (12.0-20.0); Calcium, Blood 9.4 mg/dL (8.5-10.1); Creatinine, Blood 1.95 mg/dL (0.60-1.20); Globulin, Blood 3.8 g/dL (2.2-4.0); Potassium, Blood 2.9 mmol/L (3.5-5.5); Thyroid Stimulating Hormone 2.61 uIU/mL (0.360-4.800); Total Protein, Blood 7.3 g/dL (6.4-8.2)
== END ==
LOC: LAB SHORT 11:30 → LAB 11:30
PROVIDERS: Physician Assistant
DX: R63.4 Abnormal weight loss (principal)
CPT/HCPCS: 80053; 84443

== ENCOUNTER → 2021-12-16 | Outpatient (CLI) | payer OTHER | END | disposition home or self-care (01) | LOC: LAB SHORT 12:04 | DX: L97.519 Non-pressure chronic ulcer of other part of right foot with unspecified severity (principal) | CPT/HCPCS: 87070; 87075; 87205 ==